=== PATIENT | male | born 1955 | race African-American/Black ===

== ENCOUNTER 2017-11-15 17:30 | Emergency (ER) | payer MEDICAID, OTHER ==
[~2017-11-15] VITALS: Ht 177.8 cm; Wt 81.6 kg
[2017-11-15 17:30] VITALS: BP 133/73
[~2017-11-15 17:30] MED LIST: ACET325T53 MC; IBUP-51 PO
== END 2017-11-15 18:36 | disposition home or self-care (01) ==
LOC: ER 17:32
DX: K02.9 Dental caries, unspecified (principal); R59.1 Generalized enlarged lymph nodes; F17.200 Nicotine dependence, unspecified, uncomplicated; F10.10 Alcohol abuse, uncomplicated; Z98.890 Other specified postprocedural states
CPT/HCPCS: 99283; A4606; Z7610

== ENCOUNTER 2018-02-01 10:36 | Emergency (ER) | payer MEDICAID, OTHER ==
[~2018-02-01] VITALS: Ht 177.8 cm; Wt 81.6 kg
[2018-02-01 10:47] VITALS: BP 139/82
[2018-02-01] MEDS ORDERED: ONDANSETRON 4 MG TAB.RAPDIS PO ONE (11:00)
[2018-02-01] MEDS ORDERED: TRAMADOL HCL 50 MG TABLET PO ONE (11:00)
[2018-02-01] MEDS ORDERED: TRAMADOL HCL 50 MG TABLET ONE (11:02)
[2018-02-01] MEDS ORDERED: ONDANSETRON 4 MG TAB.RAPDIS ONE (11:03)
== END 2018-02-01 11:42 | disposition home or self-care (01) ==
LOC: ER 10:37
DX: R51 Headache (principal); F10.10 Alcohol abuse, uncomplicated; F17.200 Nicotine dependence, unspecified, uncomplicated; Z98.890 Other specified postprocedural states
CPT/HCPCS: 70450-TC; A4606; Q0162; Z7610

== ENCOUNTER 2019-03-07 19:16 | Emergency (ER) | payer MEDICAID ==
[~2019-03-07] VITALS: Ht 177.8 cm; Wt 89.4 kg
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
--- NOTE | 2019-03-07 19:57 | NUR ---
PHLEB AT BEDSIDE FOR LAB DRAW
[2019-03-07] MEDS ORDERED: ACETAMINOPHEN ES 500 MG TABLET PO ONE (20:00)
[2019-03-07] MEDS ORDERED: ACETAMINOPHEN ES 500 MG TABLET ONE (20:03)
[2019-03-07 20:06] LABS: BASOPHILS % (AUTO) 0.5 % (0.0-2.0); EOSINOPHILS % (AUTO) 0.2 % (0.0-6.0); HEMATOCRIT 45 % (39-51); HEMOGLOBIN 15.2 g/dL (13.5-17.5); LYMPHOCYTES # (AUTO) 0.7 /CMM (0.8-4.8); MEAN CORPUSCULAR HGB CONC 34 g/dl (31.0-36.0); MEAN CORPUSCULAR VOLUME 92 fL (80-96); MONOCYTES # (AUTO) 0.7 /CMM (0.1-1.30); NEUTROPHILS # (AUTO) 6.5 /CMM (1.8-8.9); NEUTROPHILS % (AUTO) 81.3 % (43.0-81.0); PLATELET COUNT (AUTO) 260 /CMM (150-450); RED BLOOD CELL COUNT(AUTO) 4.93 MIL/uL (4.5-6.0)
--- NOTE | 2019-03-07 20:08 | NUR ---
PT TAKEN TO RADIOLOGY VIA [facility]
[2019-03-07 20:13] LABS: CALCIUM, SERUM 8.6 mg/dL (8.5-10.1); POTASSIUM 3.4 mmol/L (3.5-5.1)
--- NOTE | 2019-03-07 20:18 | NUR ---
PT RETURNED FROM TRIAGE. PT TOLERATED WELL.
[2019-03-07 20:24] VITALS: BP 148/86
--- NOTE | 2019-03-07 20:47 | NUR ---
URINE COLLECTED AND SENT TO LAB
--- NOTE | 2019-03-07 21:50 | NUR ---
Patient discharged to home in stable condition. Written and verbal after care instructions given. Patient verbalizes understanding of instruction. PT AMBULATORY WITH STEADY GAIT.
== END 2019-03-07 21:58 | disposition home or self-care (01) ==
LOC: ER 19:19
DX: S00.12XA Contusion of left eyelid and periocular area, initial encounter (principal); F17.200 Nicotine dependence, unspecified, uncomplicated; I10 Essential (primary) hypertension; Z79.899 Other long term (current) drug therapy; Z98.890 Other specified postprocedural states; Y08.89XA Assault by other specified means, initial encounter; Y93.89 Activity, other specified; Y92.89 Other specified places as the place of occurrence of the external cause; Y99.8 Other external cause status
CPT/HCPCS: 36415; 70450-TC; 80048-TC; 80305; 85025-TC; G0480

== ENCOUNTER 2019-03-22 16:58 | Emergency (ER) | payer MEDICAID ==
[~2019-03-22] VITALS: Ht 177.8 cm; Wt 85.7 kg
--- NOTE | 2019-03-22 17:18 | NUR ---
URINARY RETERNTION,WANTS PINO INSERTED. PT AAOX4, VSS. DENIES ANY OTHER DISCOMFORT. PT SEEN & EVAL'D BY DR. ROMERO. WILL CONT TO MONITOR.
[2019-03-22] MEDS ORDERED: TAMSULOSIN 0.4 MG CAP.SR.24H PO ONE (17:30)
[2019-03-22] MEDS ORDERED: LIDOCAINE 2% JEL UROJET 10 ML MM ONE (17:30)
[2019-03-22 17:32] LABS: APPEARANCE,URINE Clear (CLEAR); BILIRUBIN,URINE Negative (NEGATIVE); BLOOD, URINE Small Ery/uL (NEGATIVE); COLOR,URINE Yellow (YELLOW); KETONES,URINE Negative (NEGATIVE); LEUKOCYTE ESTERASE ,URINE Negative (NEGATIVE); NITRITE, URINE Negative (NEGATIVE); PROTEIN,URINE Negative (NEGATIVE); UGLUCOSE Negative (NEGATIVE); UROBILINOGEN,URINE 0.2 EU/dL (0.2)
--- NOTE | 2019-03-22 17:33 | NUR ---
16FR PINO CATH INSERTED, PT VALENTE WELL. PT HAD INSTANT RELIEF, DENIES ANY DISCOMFORT AT THIS TIME. URINE COLLECTED & SENT TO LAB. UNABLE TO USE LIDOCAINE UROJET.
[2019-03-22] MEDS ORDERED: TAMSULOSIN 0.4 MG CAP.SR.24H ONE (17:36)
[2019-03-22 18:18] LABS: SQUAMOUS EPITHELIAL CELL,UR Rare /HPF (None Seen)
[2019-03-22 18:19] LABS: BACTERIA,URINE Few /HPF (None Seen); RBC,URINE 0-2 /HPF (0-2); WBC,URINE 0-2 /HPF (0-3)
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
[2019-03-22 19:41] VITALS: BP 119/78
== END 2019-03-22 19:41 | disposition home or self-care (01) ==
LOC: ER 16:58
DX: R33.9 Retention of urine, unspecified (principal); I10 Essential (primary) hypertension; F17.200 Nicotine dependence, unspecified, uncomplicated; Z98.890 Other specified postprocedural states
CPT/HCPCS: 81000-TC

== ENCOUNTER 2019-03-25 07:07 | Emergency (ER) | payer MEDICAID ==
[~2019-03-25] VITALS: Ht 177.8 cm; Wt 84.4 kg
[2019-03-25 07:28] VITALS: BP 146/85
== END 2019-03-25 07:59 | disposition home or self-care (01) ==
LOC: ER 07:09
DX: R33.9 Retention of urine, unspecified (principal); I10 Essential (primary) hypertension; F10.10 Alcohol abuse, uncomplicated; F17.200 Nicotine dependence, unspecified, uncomplicated; Y90.9 Presence of alcohol in blood, level not specified; Z98.890 Other specified postprocedural states

== ENCOUNTER 2019-06-22 15:07 | Emergency (ER) | payer MEDICAID ==
[~2019-06-22] VITALS: Ht 177.8 cm; Wt 81.6 kg
[2019-06-22 15:14] VITALS: BP 136/86
[2019-06-22] MEDS ORDERED: LIDOCAINE 2% JEL UROJET 10 ML MM ONE (15:30)
[2019-06-22] MEDS ORDERED: TAMSULOSIN 0.4 MG CAP.SR.24H ONE (15:52)
[2019-06-22] MEDS ORDERED: TAMSULOSIN 0.4 MG CAP.SR.24H PO ONE (16:00)
[2019-06-22 16:08] LABS: APPEARANCE,URINE Clear (CLEAR); BILIRUBIN,URINE Negative (NEGATIVE); BLOOD, URINE Trace-lysed Ery/uL (NEGATIVE); COLOR,URINE Yellow (YELLOW); KETONES,URINE Negative (NEGATIVE); LEUKOCYTE ESTERASE ,URINE Negative (NEGATIVE); NITRITE, URINE Negative (NEGATIVE); PH,URINE 5.5 (5.0-8.0); PROTEIN,URINE Negative (NEGATIVE); UGLUCOSE Negative (NEGATIVE); UROBILINOGEN,URINE 0.2 EU/dL (0.2)
[2019-06-22 16:25] LABS: RBC,URINE 0-2 /HPF (0-2); WBC,URINE 0-2 /HPF (0-3)
[2019-06-22 16:26] LABS: BACTERIA,URINE Few /HPF (None Seen); SQUAMOUS EPITHELIAL CELL,UR Few /HPF (None Seen)
== END 2019-06-22 17:04 | disposition home or self-care (01) ==
LOC: ER 15:14
DX: R33.9 Retention of urine, unspecified (principal); I10 Essential (primary) hypertension; F10.10 Alcohol abuse, uncomplicated; F17.200 Nicotine dependence, unspecified, uncomplicated; Y90.9 Presence of alcohol in blood, level not specified; Z98.890 Other specified postprocedural states
CPT/HCPCS: 81000-TC

== ENCOUNTER 2019-06-22 22:46 | Emergency (ER) | payer MEDICAID ==
[~2019-06-22] VITALS: Ht 177.8 cm; Wt 81.6 kg
[2019-06-22 23:01] VITALS: BP 159/94
[2019-06-22] MEDS ORDERED: LIDOCAINE 2% JEL UROJET 10 ML MM ONE (23:18)
== END 2019-06-22 23:31 | disposition home or self-care (01) ==
LOC: ER 22:49
DX: T83.018A Breakdown (mechanical) of other urinary catheter, initial encounter (principal); R33.9 Retention of urine, unspecified; I10 Essential (primary) hypertension; F17.200 Nicotine dependence, unspecified, uncomplicated; F10.10 Alcohol abuse, uncomplicated; Y90.9 Presence of alcohol in blood, level not specified; Z98.890 Other specified postprocedural states
CPT/HCPCS: 51702; 99284; J3490

== ENCOUNTER 2019-06-24 12:06 | Emergency (ER) | payer MEDICAID ==
[~2019-06-24] VITALS: Ht 177.8 cm; Wt 79.4 kg
[2019-06-24 12:11] VITALS: BP 138/84
--- NOTE | 2019-06-24 12:20 | NUR ---
SEEN AND EXAMINED BY DR. CORBIN.
--- NOTE | 2019-06-24 13:00 | NUR ---
PT ABLE TO URINATE. MD AWARE.
--- NOTE | 2019-06-24 13:14 | NUR ---
Patient discharged to home in stable condition. Written and verbal after care instructions given. Patient verbalizes understanding of instruction.
== END 2019-06-24 13:14 | disposition home or self-care (01) ==
LOC: ER 12:10
DX: Z46.6 Encounter for fitting and adjustment of urinary device (principal); I10 Essential (primary) hypertension; R33.9 Retention of urine, unspecified; F10.10 Alcohol abuse, uncomplicated; F17.200 Nicotine dependence, unspecified, uncomplicated; Y90.9 Presence of alcohol in blood, level not specified; Z98.890 Other specified postprocedural states